=== PATIENT | male | born 1960 | race Two or more races ===

== ENCOUNTER 2024-08-16 19:31 | Inpatient (IN) | payer MEDICARE, OTHER ==
[~2024-08-16] VITALS: Ht 170.2 cm; Wt 72.6 kg
[2024-08-16 20:30] LABS: BASOPHILS % (AUTO) 0.3 % (0.0-2.0); EOSINOPHILS # (AUTO) 0.3 K/uL (0.0-0.7); EOSINOPHILS % (AUTO) 5.1 % (0.0-6.0); HEMATOCRIT 33 % (39-51); LYMPHOCYTES # (AUTO) 2.2 K/uL (0.8-4.8); LYMPHOCYTES % (AUTO) 32.2 % (20.0-44.0); MEAN CORPUSCULAR HEMOGLOBIN 30 PG (26.0-33.0); MEAN CORPUSCULAR HGB CONC 34 g/dl (31.0-36.0); MEAN CORPUSCULAR VOLUME 87 fL (80-96); MONOCYTES # (AUTO) 0.5 K/uL (0.1-1.30); MONOCYTES % (AUTO) 7.3 % (2.0-12.0); NEUTROPHILS # (AUTO) 3.7 K/uL (1.8-8.9); NEUTROPHILS % (AUTO) 55.1 % (43.0-81.0); PLATELET COUNT (AUTO) 190 K/uL (150-450); RED BLOOD CELL COUNT(AUTO) 3.72 MIL/uL (4.5-6.0); RED CELL DISTRIBUTION WIDTH 14.7 % (11.5-15.0); WHITE BLOOD COUNT (AUTO) 6.7 K/uL (4.3-11.0)
[2024-08-16 20:44] LABS: ALANINE AMINOTRANSFERASE 30 U/L (12-78); ALBUMIN 3.4 g/dL (3.4-5.0); ALCOHOL, BLOOD < 3 mg/dL (0-10); ALKALINE PHOSPHATASE 87 U/L (46-116); ASPARTATE AMINOTRANSFERASE 20 U/L (15-37); BILIRUBIN,DIRECT 0.1 mg/dL (0.0-0.2); BILIRUBIN,TOTAL 0.2 mg/dL (0.2-1.0); CALCIUM, SERUM 8.4 mg/dL (8.5-10.1); CARBON DIOXIDE 21 mmol/L (21-32); CHLORIDE 110 mmol/L (98-107); CREATININE 3.2 mg/dL (0.6-1.3); GLUCOSE 112 mg/dL (74-106); POTASSIUM 4.3 mmol/L (3.5-5.1); SODIUM SERUM 142 mmol/L (136-145); TOTAL PROTEIN, SERUM 7.6 g/dL (6.4-8.2); UREA NITROGEN, BLOOD 56 mg/dL (7-18)
[2024-08-16 20:45] LABS: SALICYLATE 1.9 mg/dL (2.8-20.0)
[2024-08-16 20:46] LABS: ACETAMINOPHEN <10 ug/ml (10-30)
[2024-08-16 21:16] VITALS: BP 132/85; TEMP 97.9; O2SAT 98
[2024-08-16] MEDS ORDERED: ACETAMINOPHEN 325 MG TABLET PO PRN (21:30)
[2024-08-16] MEDS ORDERED: ONDANSETRON HCL/PF 4 MG/2 ML VIAL IVP PRN (21:30)
[2024-08-16] MEDS ORDERED: MAG HYDROX/AL HYDROX/SIMETH 30 ML UDC PO PRN (21:30)
[2024-08-16] MEDS ORDERED: Z GUARD REMEDY 4 OZ OINT TP PRN (21:30)
[2024-08-16] MEDS: IV NS 0.9% 1,000 ML BAG IV ONE (21:30)
[2024-08-16] MEDS ORDERED: MAGNESIUM HYDROXIDE 30 ML UDC PO PRN (21:30)
[2024-08-16] MEDS ORDERED: HYDROCODONE/APAP 5/325MG TABLET PO PRN (21:30)
[2024-08-16 21:45] LABS: APPEARANCE,URINE CLEAR (CLEAR); BILIRUBIN,URINE NEGATIVE (NEGATIVE); BLOOD, URINE TRACE-INTA Ery/uL (NEGATIVE); COLOR,URINE YELLOW (YELLOW); KETONES,URINE NEGATIVE (NEGATIVE); LEUKOCYTE ESTERASE ,URINE NEGATIVE (NEGATIVE); NITRITE, URINE NEGATIVE (NEGATIVE); PROTEIN,URINE 2+ mg/dl (NEGATIVE); UGLUCOSE NEGATIVE (NEGATIVE); UROBILINOGEN,URINE 0.2 EU/dL (0.2)
[2024-08-16 22:05] LABS: AMPHETAMINE, URINE NEGATIVE (NEGATIVE); BARBITURATE, URINE NEGATIVE (NEGATIVE); BENZODIAZEPINE, URINE NEGATIVE (NEGATIVE); CANNABINOID, URINE NEGATIVE (NEGATIVE); COCCAINE, URINE NEGATIVE (NEGATIVE); OPIATE, URINE NEGATIVE (NEGATIVE); PHENCYCLIDINE SCREEN,URINE NEGATIVE (NEGATIVE)
[2024-08-16 22:09] LABS: ADD URINE CULTURE NO; BACTERIA,URINE Few /HPF (None Seen); MUCUS,URINE Few /LPF (None Seen); SQUAMOUS EPITHELIAL CELL,UR 0-2 /HPF (None Seen)
[2024-08-16] MEDS: ATORVASTATIN 10 MG TABLET PO SCH (23:24)
[2024-08-17] MEDS: IV NS 0.9% 1,000 ML IV PRN (01:00)
[2024-08-17 06:42] LABS: BASOPHILS % (AUTO) 0.3 % (0.0-2.0); EOSINOPHILS # (AUTO) 0.2 K/uL (0.0-0.7); EOSINOPHILS % (AUTO) 5.3 % (0.0-6.0); HEMATOCRIT 30 % (39-51); HEMOGLOBIN 10.1 g/dL (13.5-17.5); LYMPHOCYTES # (AUTO) 1.5 K/uL (0.8-4.8); LYMPHOCYTES % (AUTO) 34.6 % (20.0-44.0); MEAN CORPUSCULAR HEMOGLOBIN 30 PG (26.0-33.0); MEAN CORPUSCULAR HGB CONC 34 g/dl (31.0-36.0); MEAN CORPUSCULAR VOLUME 88 fL (80-96); MONOCYTES # (AUTO) 0.4 K/uL (0.1-1.30); MONOCYTES % (AUTO) 9.1 % (2.0-12.0); NEUTROPHILS # (AUTO) 2.2 K/uL (1.8-8.9); NEUTROPHILS % (AUTO) 50.7 % (43.0-81.0); PLATELET COUNT (AUTO) 163 K/uL (150-450); RED BLOOD CELL COUNT(AUTO) 3.37 MIL/uL (4.5-6.0); RED CELL DISTRIBUTION WIDTH 15.2 % (11.5-15.0); WHITE BLOOD COUNT (AUTO) 4.4 K/uL (4.3-11.0)
[2024-08-17 06:44] LABS: CALCIUM, SERUM 7.8 mg/dL (8.5-10.1); CREATININE 2.8 mg/dL (0.6-1.3); MAGNESIUM 1.9 mg/dL (1.8-2.4); PHOSPHORUS 3.4 mg/dL (2.5-4.9); POTASSIUM 4.2 mmol/L (3.5-5.1)
[2024-08-17 07:05] LABS: THYROID STIMULATING HORMONE 2.82 uIU/mL (0.358-3.74)
[2024-08-17 07:30] VITALS: BP 164/99; TEMP 97.5; O2SAT 99
[2024-08-17] MEDS: PANTOPRAZOLE 40 MG TABLET.DR PO SCH (07:46)
[2024-08-17 08:00] VITALS: BP 164/99; TEMP 97.9; O2SAT 99
[2024-08-17] MEDS: LEVETIRACETAM (250 MG) 250 MG TABLET PO SCH (08:32)
[2024-08-17] MEDS: NIFEdipine XL (30MG) 30 MG TAB PO SCH (08:32)
[2024-08-17] MEDS: VIT B CMPLX 3/FA/VIT C/BIOTIN 1 TAB TABLET PO SCH (08:32)
[2024-08-17] MEDS: GABAPENTIN 100 MG CAPSULE PO SCH (08:33)
[2024-08-17] MEDS: ASPIRIN 81 MG TAB.CHEW PO SCH (08:33)
[2024-08-17 09:30] VITALS: BP 150/91
[2024-08-17] MEDS ORDERED: LOSA25TA27 PO (09:57)
[2024-08-17] MEDS ORDERED: BICT1TAB PO (09:57)
[2024-08-17] MEDS ORDERED: GUAI100S34 PO (09:57)
[2024-08-17] MEDS ORDERED: ASPI-1169 PO (09:57)
[2024-08-17] MEDS ORDERED: GABA-532 PO (09:57)
[2024-08-17] MEDS ORDERED: LEVE100023 PO (09:57)
[2024-08-17] MEDS ORDERED: POLY17PO4 PO (09:57)
[2024-08-17] MEDS ORDERED: ACET-868 PO (09:57)
[2024-08-17] MEDS ORDERED: NIFE90TA2 PO (09:57)
[2024-08-17] MEDS ORDERED: ATOR10TA PO (09:57)
[2024-08-17] MEDS ORDERED: BISA10SU61 RC (09:57)
[2024-08-17] MEDS ORDERED: FOLI0.8T23 PO (09:57)
[2024-08-17] MEDS ORDERED: NA P133E RC (09:57)
[2024-08-17 16:00] VITALS: BP 155/86; TEMP 97.3; O2SAT 96
[2024-08-17] MEDS: BIKTARVY 50-200-25 MG TABLET NF GT SCH (17:00)
[2024-08-17 20:23] VITALS: BP 145/94; TEMP 97.2; O2SAT 97
[2024-08-17] MEDS: TEMAZEPAM 15 MG CAPSULE PO PRN (22:05)
[2024-08-18 06:25] LABS: BASOPHILS % (AUTO) 0.3 % (0.0-2.0); EOSINOPHILS # (AUTO) 0.3 K/uL (0.0-0.7); EOSINOPHILS % (AUTO) 4.9 % (0.0-6.0); HEMATOCRIT 34 % (39-51); HEMOGLOBIN 11.4 g/dL (13.5-17.5); LYMPHOCYTES # (AUTO) 1.5 K/uL (0.8-4.8); LYMPHOCYTES % (AUTO) 23.9 % (20.0-44.0); MEAN CORPUSCULAR HEMOGLOBIN 30 PG (26.0-33.0); MEAN CORPUSCULAR HGB CONC 34 g/dl (31.0-36.0); MEAN CORPUSCULAR VOLUME 88 fL (80-96); MONOCYTES # (AUTO) 0.4 K/uL (0.1-1.30); MONOCYTES % (AUTO) 6.8 % (2.0-12.0); NEUTROPHILS # (AUTO) 3.9 K/uL (1.8-8.9); NEUTROPHILS % (AUTO) 64.1 % (43.0-81.0); PLATELET COUNT (AUTO) 186 K/uL (150-450); RED BLOOD CELL COUNT(AUTO) 3.85 MIL/uL (4.5-6.0); RED CELL DISTRIBUTION WIDTH 15.1 % (11.5-15.0); WHITE BLOOD COUNT (AUTO) 6.1 K/uL (4.3-11.0)
[2024-08-18 06:53] LABS: ALBUMIN 3.3 g/dL (3.4-5.0); BILIRUBIN,TOTAL 0.2 mg/dL (0.2-1.0); CALCIUM, SERUM 8.4 mg/dL (8.5-10.1); CREATININE 2.5 mg/dL (0.6-1.3); MAGNESIUM 2.1 mg/dL (1.8-2.4); PHOSPHORUS 3.1 mg/dL (2.5-4.9); POTASSIUM 4.4 mmol/L (3.5-5.1); TOTAL PROTEIN, SERUM 7.6 g/dL (6.4-8.2)
[2024-08-18 20:00] VITALS: BP 146/84; TEMP 97.3; O2SAT 96
[2024-08-19 07:00] VITALS: BP 161/93; TEMP 98.2; O2SAT 99
[2024-08-19 09:57] LABS: CALCIUM, SERUM 8.3 mg/dL (8.5-10.1); CREATININE 2.1 mg/dL (0.6-1.3); POTASSIUM 4.2 mmol/L (3.5-5.1)
[2024-08-19] MEDS: IV NS 0.9% 1,000 ML IV PRN (12:12)
[2024-08-19 16:00] VITALS: BP 162/86; TEMP 97.7; O2SAT 97
[2024-08-19] MEDS: CLONIDINE HCL 0.1 MG TABLET PO ONE (16:21)
[2024-08-19 20:21] VITALS: BP 120/72; TEMP 98.6; O2SAT 95
[2024-08-20 08:06] LABS: PTH, INTACT 42 pg/mL (15-65)
[2024-08-21 06:10] LABS: *SPE A/G RATIO 0.9 (0.7-1.7); *SPE ALBUMIN 3.4 g/dL (2.9-4.4); *SPE ALPHA-1-GLOBULIN 0.2 g/dL (0.0-0.4); *SPE ALPHA-2-GLOBULIN 0.8 g/dL (0.4-1.0); *SPE GLOBULIN, TOTAL 3.6 g/dL (2.2-3.9); *SPE M-SPIKE Not Observed g/dL (Not Observed); *SPEGAMMA GLOBULIN 1.6 g/dL (0.4-1.8)
== END 2024-08-19 19:50 | DRG 682 ==
LOC: ER 19:42 → MED 21:40
PROVIDERS: ADMIT Nurse Practitioner Acute Care; ATTEND Internal Medicine
DX: N17.0 Acute kidney failure with tubular necrosis (principal); G93.41 Metabolic encephalopathy; G40.909 Epilepsy, unspecified, not intractable, without status epilepticus; I12.9 Hypertensive chronic kidney disease with stage 1 through stage 4 chronic kidney disease, or unspecified chronic kidney disease; N18.9 Chronic kidney disease, unspecified; E86.0 Dehydration; E78.5 Hyperlipidemia, unspecified; G62.9 Polyneuropathy, unspecified; M89.8X9 Other specified disorders of bone, unspecified site; Z20.822 Contact with and (suspected) exposure to COVID-19; D63.8 Anemia in other chronic diseases classified elsewhere; Z86.73 Personal history of transient ischemic attack (TIA), and cerebral infarction without residual deficits; Z79.899 Other long term (current) drug therapy
CPT/HCPCS: 36415; 76770-TC; 80048-TC; 80053-TC; 80076-TC; 81001; 82550-TC; 83735-TC; 83970; 84100-TC; 84155; 84165; 84443-TC; 85025-TC; 97112-TC; 97116-TC; 97530-TC; A4223; G0378; G0480; J7030